=== PATIENT | female | born 1965 | race Caucasian/White ===

== ENCOUNTER 2017-09-18 17:40 | Emergency (ER) | payer BC, MEDICAID, OTHER | END 2017-09-18 18:36 | disposition left against medical advice (07) | LOC: JP.ED 17:40 | DX: Z53.21 Procedure and treatment not carried out due to patient leaving prior to being seen by health care provider (principal) ==

== ENCOUNTER 2020-06-20 06:25 | Day surgery (SDC) | payer MEDICAID ==
[2020-06-20] MEDS ORDERED: Midazolam 1 MG/ML 2 ML SDV ONE (06:55)
[2020-06-20] MEDS ORDERED: fentaNYL 100 MCG/2 ML SDV ONE (06:55)
[2020-06-20] MEDS ORDERED: Propofol 200 MG/20 ML SDV ONE ×2 (06:57→07:50)
[2020-06-20] MEDS ORDERED: Sodium Chloride 0.9% 1,000 ML IV SCH (07:00)
--- NOTE | 2020-06-20 15:30 | OR ---
DATE OF PROCEDURE: 06/20/2020 SURGEON: Ronak Kirby MD PROCEDURE: Colonoscopy. FINDINGS: 1. Diverticulosis, mild. 2. Sigmoid colon polyp, approximately less than 5 mm, completely removed using cold biopsy forceps. 3. Rectal polyp/tag, less than 5 mm, completely removed using cold biopsy forceps. COMPLICATIONS: None. MEDICARE NURSE: None. ANESTHESIA: MAC. PREOPERATIVE DIAGNOSIS: Screening colonoscopy/history or irritable bowel. POSTOPERATIVE DIAGNOSIS: Screening colonoscopy/history or irritable bowel. RISKS: Risks, benefits, alternatives, and limitations including, but not limited to infection, bleeding, and perforation were explained to the patient who wished to proceed. PROCEDURE IN DETAIL: The patient was placed in the left lateral decubitus position. Digital rectal exam was performed without abnormality. Scope was introduced and advanced atraumatically to the ileocecal valve. A photo was taken of this. Scope was brought back through the ascending, transverse, descending colon, and retroflexed. The aforementioned polyps were small, completely removed using cold biopsy forceps. No abnormal bleeding was noted after removal. No evidence of irritable or inflammatory bowel. The mucosa was completely normal. No old or new blood. Diverticulosis described as very mild, limited to sigmoid colon without evidence of diverticulitis or bleeding. No proctitis. No abnormalities on retroflexion. The patient tolerated the procedure well. Ronak Kirby MD /[id number]
== END 2020-06-20 09:20 | disposition home or self-care (01) ==
LOC: JP.SDS 06:25
PROVIDERS: ATTEND Surgery
DX: Z12.11 Encounter for screening for malignant neoplasm of colon (principal); K63.5 Polyp of colon; K62.1 Rectal polyp; K57.30 Diverticulosis of large intestine without perforation or abscess without bleeding; J45.909 Unspecified asthma, uncomplicated
CPT/HCPCS: J2250; J2704; J3010; J7030

== ENCOUNTER 2021-01-10 07:23 | Day surgery (SDC) | payer OTHER ==
[2021-01-10] MEDS ORDERED: fentaNYL 100 MCG/2 ML SDV ONE (07:25)
[2021-01-10] MEDS ORDERED: Propofol 200 MG/20 ML SDV ONE (07:25)
[2021-01-10] MEDS ORDERED: Midazolam 1 MG/ML 2 ML SDV ONE (07:25)
[2021-01-10] MEDS ORDERED: Sodium Chloride 0.9% 1,000 ML IV SCH (08:00)
--- NOTE | 2021-01-10 15:24 | OR ---
DATE OF PROCEDURE: 01/10/2021 SURGEON: Ronak Kirby MD PROCEDURE: Esophagogastroduodenoscopy. FINDINGS: 1. Mild inflammation in the GE junction concerning for reflux disease. 2. Small hiatal hernia approximately 2 cm. COMPLICATIONS: None. [employer] OR [employer]IV[employer] MEMBER: None. ANESTHESIA: MAC. PREOPERATIVE DIAGNOSIS: Epigastric pain. POSTOPERATIVE DIAGNOSIS: Epigastric pain. RISK: Risks, benefits, alternatives, and limitations including but not limited to infection, bleeding, perforation explained to the patient, who wished to proceed. PROCEDURE IN DETAIL: The patient was placed in left lateral decubitus position. The EGD scope was introduced and advanced atraumatically to the second part of the duodenum. No evidence of duodenitis or ulceration. No evidence of old or new blood. Within the stomach itself, there was no gastritis or ulceration. No abnormalities when retroflexed. At the GE junction, the patient had what was felt to be small sliding hiatal hernia. She also had mild inflammation concerning for reflux disease. This was biopsied in all 4 quadrants using cold biopsy forceps. The remainder of the esophagus was inspected without abnormality. The patient tolerated the procedure well. oRnak Kirby MD /[id number]
== END 2021-01-10 10:25 | disposition home or self-care (01) ==
LOC: JP.SDS 07:23
PROVIDERS: ATTEND Surgery
DX: K21.00 Gastro-esophageal reflux disease with esophagitis, without bleeding (principal); K44.9 Diaphragmatic hernia without obstruction or gangrene; I10 Essential (primary) hypertension; E66.9 Obesity, unspecified; J45.909 Unspecified asthma, uncomplicated; Z68.31 Body mass index [BMI] 31.0-31.9, adult
CPT/HCPCS: 43239; J2250; J2704; J3010; J7030

== ENCOUNTER 2021-09-18 13:57 | Emergency (ER) | payer OTHER ==
[2021-09-18] MEDS ORDERED: Acetaminophen/oxyCODONE 325-5 MG Tab PO ONE (14:53)
[2021-09-18] MEDS ORDERED: Enoxaparin 80 MG/0.8 ML Syringe SUBCUT SCH (18:00)
== END 2021-09-18 18:26 | disposition home or self-care (01) ==
LOC: JP.ED 13:57
DX: I74.2 Embolism and thrombosis of arteries of the upper extremities (principal); E78.00 Pure hypercholesterolemia, unspecified; I10 Essential (primary) hypertension; Z88.5 Allergy status to narcotic agent; Z91.041 Radiographic dye allergy status; Z88.8 Allergy status to other drugs, medicaments and biological substances; Z79.899 Other long term (current) drug therapy
CPT/HCPCS: 93931-RT; 93971-RT; 96372; 99283; A9270-GY; J1650

== ENCOUNTER 2021-09-20 13:03 | Emergency (ER) | payer OTHER | END 2021-09-20 14:10 | disposition home or self-care (01) | LOC: JP.ED 13:03 | DX: I16.0 Hypertensive urgency (principal); I10 Essential (primary) hypertension; E78.00 Pure hypercholesterolemia, unspecified; Z88.5 Allergy status to narcotic agent; Z91.041 Radiographic dye allergy status; Z88.8 Allergy status to other drugs, medicaments and biological substances; Z79.899 Other long term (current) drug therapy | CPT/HCPCS: 99281; 99283 ==

== ENCOUNTER 2022-02-06 06:00 | Day surgery (SDC) | payer OTHER ==
[2022-02-06] MEDS ORDERED: Albuterol/Ipratropium 3.0-0.5 MG/3 ML Neb Soln NEB ONE (06:15)
[2022-02-06] MEDS ORDERED: Acetaminophen 500 MG Tab PO ONE (06:15)
[2022-02-06] MEDS ORDERED: Meropenem 500 MG in Sodium Chloride 0.9% 50 ML IV ONE ×2 (06:15→07:30)
[2022-02-06] MEDS ORDERED: Dextrose 5%-Lactated Ringers 1,000 ML IV SCH (06:15)
[2022-02-06] MEDS ORDERED: Bupivacaine 0.5% 30 ML SDV ONE (06:45)
[2022-02-06] MEDS ORDERED: Lidocaine 1% with EPINEPHrine 1:100,000 50 ML MDV ONE (06:46)
[2022-02-06] MEDS ORDERED: fentaNYL 250 MCG/5 ML SDV ONE (07:14)
[2022-02-06] MEDS ORDERED: Rocuronium 50 MG/5 ML Vial ONE (07:15)
[2022-02-06] MEDS ORDERED: Ondansetron 4 MG/2 ML SDV ONE (07:15)
[2022-02-06] MEDS ORDERED: Glycopyrrolate 0.2 MG/ML 5 ML MDV ONE (07:15)
[2022-02-06] MEDS ORDERED: Propofol 200 MG/20 ML SDV ONE (07:15)
[2022-02-06] MEDS ORDERED: Dexamethasone 4 MG/ML SDV ONE (07:15)
[2022-02-06] MEDS ORDERED: Succinylcholine 200 MG/10 ML MDV ONE (07:15)
[2022-02-06] MEDS ORDERED: Neostigmine Methylsulfate 1 MG/ML 5 ML Syringe ONE (07:15)
[2022-02-06] MEDS ORDERED: Ketorolac 30 MG/ML SDV ONE (08:00)
[2022-02-06] MEDS ORDERED: Ketamine 16 MG in Sodium Chloride 0.9% 19.84 ML IV SCH (08:00)
[2022-02-06] MEDS ORDERED: Ketamine 500 MG/5 ML MDV IV SCH (08:00)
[2022-02-06] MEDS ORDERED: HYDROmorphone 2 MG Tab PO PRN (09:13)
== END 2022-02-06 10:25 | disposition home or self-care (01) ==
LOC: JP.SDS 06:00
PROVIDERS: ATTEND Surgery
DX: D17.1 Benign lipomatous neoplasm of skin and subcutaneous tissue of trunk (principal); J45.909 Unspecified asthma, uncomplicated; F41.9 Anxiety disorder, unspecified; E66.01 Morbid (severe) obesity due to excess calories; I10 Essential (primary) hypertension; K21.9 Gastro-esophageal reflux disease without esophagitis; I25.10 Atherosclerotic heart disease of native coronary artery without angina pectoris; G62.9 Polyneuropathy, unspecified; E78.5 Hyperlipidemia, unspecified; Z90.49 Acquired absence of other specified parts of digestive tract; Z98.890 Other specified postprocedural states; Z79.899 Other long term (current) drug therapy; Z88.8 Allergy status to other drugs, medicaments and biological substances; Z88.5 Allergy status to narcotic agent; Z91.041 Radiographic dye allergy status; Z68.32 Body mass index [BMI] 32.0-32.9, adult
CPT/HCPCS: 21930; 21933; 88304; 94640; A9270; J0330; J1100; J1885; J2185; J2405; J2704; J3010; J3490; J7121; J2710; J7620